=== PATIENT | female | born 1995 | race African-American/Black ===

== ENCOUNTER 2018-12-05 16:29 | Emergency (ER) | payer SELFPAY ==
[~2018-12-05] VITALS: Ht 160 cm; Wt 90.7 kg
[2018-12-05 18:31] LABS: BILIRUBIN,URINE NEGATIVE (NEG); CLARITY,URINE CLEAR; COLOR,URINE YELLOW; NITRITE,URINE NEGATIVE (NEG); PH,URINE 6.5; PROTEIN,URINE NEGATIVE (NEG-TRACE); UROBILINOGEN,URINE 0.2 mg/dL (0.2 mg/dL)
[2018-12-05 18:47] LABS: SQUAMOUS EPITHELIAL CELL,UR MOD /LPF
[2018-12-05 18:48] LABS: BACTERIA,URINE MODERATE /HPF (0-FEW)
[2018-12-05 18:49] LABS: RBC,URINE 0 /HPF (0-2)
[2018-12-05] MEDS ORDERED: ONDANSETRON PF 4 MG/2 ML VIAL. IV ONE (19:15)
[2018-12-05] MEDS ORDERED: KETOROLAC 15 MG/ML VIAL. IV ONE (19:15)
[2018-12-05] MEDS ORDERED: IV NORMAL SALINE 1000ML BAG 1,000 ML IV ONE (19:15)
[2018-12-05 19:25] LABS: BASO % 1 % (0-3); EOS # 0.2 x10^3/uL (0.0-0.7); EOS % 3 % (0-3); HEMATOCRIT 27.2 % (36.0-47.0); HEMOGLOBIN 8.7 g/dL (12.0-15.5); LYMPH # 1.8 x10^3/uL (1.0-4.8); LYMPH % 27 % (24-48); MEAN CORPUSCULAR HEMOGLOBIN 23 pg (25-35); MEAN CORPUSCULAR HGB CONC 32 g/dL (31-37); MEAN CORPUSCULAR VOLUME 72 fL (79-100); MONO # 0.3 x10^3/uL (0.0-1.1); MONO % 5 % (0-9); NEUT # 4.4 x10^3uL (1.8-7.7); NEUT % 65 % (31-73); PLATELET COUNT 185 x10^3/uL (140-400); RED BLOOD COUNT 3.79 x10^6/uL (3.50-5.40); RED CELL DISTRIBUTION WIDTH 19.1 % (11.5-14.5); WHITE BLOOD COUNT 6.7 x10^3/uL (4.0-11.0)
[2018-12-05 19:32] LABS: CALCIUM 8.4 mg/dL (8.5-10.1); CREATININE 0.9 mg/dL (0.6-1.0); GFR 92.3; POTASSIUM 3.6 mmol/L (3.5-5.1)
[2018-12-05 19:38] LABS: ALBUMIN 3.4 g/dL (3.4-5.0); ALBUMIN/GLOBULIN RATIO 0.8 (1.0-1.7); TOTAL BILIRUBIN 0.2 mg/dL (0.2-1.0); TOTAL PROTEIN 7.7 g/dL (6.4-8.2)
--- NOTE | 2018-12-05 20:04 | RAD ---
PQRS Compliance Statement: One or more of the following individualized dose reduction techniques were utilized for this examination: 1. Automated exposure control 2. Adjustment of the mA and/or kV according to patient size 3. Use of iterative reconstruction technique CT abdomen/pelvis without contrast 12/05/2018 7:15 PM INDICATION: Bilateral flank pain for 3 days COMPARISON: None available TECHNIQUE: Multiple axial CT images of the abdomen and pelvis were obtained without intravenous contrast. Coronal and sagittal reformats are provided. FINDINGS: Visualized portions of the lung bases are clear. Heart size is within normal limits. Evaluation of the solid abdominal viscera is limited by lack of intravenous contrast. No suspicious hepatic masses are identified. Spleen, bilateral adrenal glands, and pancreas are normal in appearance. Gallbladder is present without adjacent inflammatory changes. The abdominal aorta is normal in course and caliber. There are no pathologically enlarged lymph nodes in the abdomen and pelvis. There is no abdominal free fluid. There is no free intraperitoneal air. Small and large bowel are normal in caliber. There is no evidence for bowel obstruction. There are no pericolonic inflammatory changes. A normal, nondilated appendix is visualized without adjacent inflammatory changes. The kidneys are relatively symmetric in appearance. There is no suspicious renal mass within the limitations of a noncontrast examination. There is no hydronephrosis. There are no calculi within the kidneys, ureters or urinary bladder. The urinary bladder is within normal limits given degree of distention. Uterus and adnexa are within normal limits. No suspicious pelvic masses are identified. There are no suspicious osseous lesions identified. IMPRESSION: 1. No acute abnormality is identified within the abdomen and pelvis within the limitations of a noncontrast examination. No evidence for obstructive uropathy. Electronically signed by: Katherine Howard MD (12/05/2018 8:01 PM) [facility]
--- NOTE | 2018-12-05 20:08 | PHYS DOC ---
Past Medical History Past Medical History: Anemia, Hypothyroid Additional Past Medical Histor: thyroid cancer (FRANK ROBLES APRN) Past Surgical History: Other Additional Past Surgical Histo: THYROID REMOVED (FRANK ROBLES APRN) Alcohol Use: Occasionally Drug Use: None (FRANK ROBLES APRN) Adult General Chief Complaint Chief Complaint: ABDOMINAL PAIN HPI HPI Patient is a 23 year old AA female who presents to the emergency department with complaints of bilateral flank pain for the last three days. She denies any dysuria, hematuria, urgency, or increased frequency of urination. She denies any nausea, vomiting, diarrhea, or abdominal pain. Patient currently he rates her pain a 8/10 on the pain scale, there are no alleviating or exacerbating factors. She reports her last bowel movement was earlier today and was normal. (FRANK ROBLES APRN) Review of Systems Review of Systems Constitutional: Denies fever or chills [] Eyes: Denies change in visual acuity, redness, or eye pain [] HENT: Denies nasal congestion or sore throat [] Respiratory: Denies cough or shortness of breath [] Cardiovascular: No additional information not addressed in HPI [] GI: Denies abdominal pain, nausea, vomiting, or diarrhea [] : Denies dysuria or hematuria ; See HPI Musculoskeletal: Denies joint pain [] Integument: Denies rash or skin lesions [] Neurologic: Denies headache, focal weakness or sensory changes [] Complete systems were reviewed and found to be within normal limits, except as documented in this note. (FRANK ROBLES APRN) Current Medications Current Medications Current Medications Medications (Trade) Dose Ordered Sig/Padilla Start Time Stop Time Status Last Admin Dose Admin Ketorolac Tromethamine (Toradol 15mg Vial) 15 mg 1X ONCE 12/05/18 19:15 12/05/18 19:27 DC 12/05/18 19:37 15 MG Ondansetron HCl (Zofran) 4 mg 1X ONCE 12/05/18 19:15 12/05/18 19:27 DC 12/05/18 19:36 4 MG Sodium Chloride 1,000 ml @ 1,000 mls/hr 1X ONCE 12/05/18 19:15 12/05/18 20:14 DC 12/05/18 19:36 1,000 MLS/HR (BG JOY DO) Allergies Allergies Allergies Coded Allergies Type Severity Reaction Last Updated Verified No Known Drug Allergies 12/05/18 No (BG JOY DO) Physical Exam Physical Exam Constitutional: Well developed, well nourished, no acute distress, non-toxic appearance. [] HENT: Normocephalic, atraumatic, bilateral external ears normal, nose normal. [] Eyes: PERRLA, no discharge. [] Neck: Normal range of motion, no stridor. [] Cardiovascular:Heart rate regular rhythm Lungs & Thorax: respirations even and unlabored, no retractions, no distress Abdomen: Bowel sounds normal, soft, no tenderness, no masses, no pulsatile masses. [] Skin: Warm, dry, no erythema, no rash. [] Back: No bony tenderness, no CVA tenderness. [] Extremities: No cyanosis, ROM intact, no edema, no deformities. Neurologic: Alert and oriented X 3, no focal deficits noted. [] Psychologic: Affect normal, judgement normal, mood normal. [] (FRANK ROBLES APRN) Current Patient Data Lab Values Laboratory Tests Test 12/05/18 16:40 12/05/18 18:14 12/05/18 19:00 Urine Collection Type Unknown Urine Color Yellow Urine Clarity Clear Urine pH 6.5 Urine Specific [place] 1.025 Urine Protein Negative mg/dL (NEG-TRACE) Urine Glucose (UA) Negative mg/dL (NEG) Urine Ketones (Stick) Negative mg/dL (NEG) Urine Blood Large (NEG) Urine Nitrite Negative (NEG) Urine Bilirubin Negative (NEG) Urine Urobilinogen Dipstick 0.2 mg/dL (0.2 mg/dL) Urine Leukocyte Esterase Trace (NEG) Urine RBC 0 /HPF (0-2) Urine WBC 1-4 /HPF (0-4) Urine Squamous Epithelial Cells Mod /LPF Urine Bacteria Moderate /HPF (0-FEW) Urine Mucus Mod /LPF POC Urine HCG, Qualitative Hcg negative (Negative) White Blood Count 6.7 x10^3/uL (4.0-11.0) Red Blood Count 3.79 x10^6/uL (3.50-5.40) Hemoglobin 8.7 g/dL (12.0-15.5) L Hematocrit 27.2 % (36.0-47.0) L Mean Corpuscular Volume 72 fL (79-100) L Mean Corpuscular Hemoglobin 23 pg (25-35) L Mean Corpuscular Hemoglobin Concent 32 g/dL (31-37) Red Cell Distribution Width 19.1 % (11.5-14.5) H Platelet Count 185 x10^3/uL (140-400) Neutrophils (%) (Auto) 65 % (31-73) Lymphocytes (%) (Auto) 27 % (24-48) Monocytes (%) (Auto) 5 % (0-9) Eosinophils (%) (Auto) 3 % (0-3) Basophils (%) (Auto) 1 % (0-3) Neutrophils # (Auto) 4.4 x10^3uL (1.8-7.7) Lymphocytes # (Auto) 1.8 x10^3/uL (1.0-4.8) Monocytes # (Auto) 0.3 x10^3/uL (0.0-1.1) Eosinophils # (Auto) 0.2 x10^3/uL (0.0-0.7) Basophils # (Auto) 0.0 x10^3/uL (0.0-0.2) Platelet Estimate Adequate (ADEQUATE) Giant Platelets Occ Polychromasia Hypochromasia Mod Anisocytosis Slight Sodium Level 139 mmol/L (136-145) Potassium Level 3.6 mmol/L (3.5-5.1) Chloride Level 103 mmol/L (98-107) Carbon Dioxide Level 30 mmol/L (21-32) Anion Gap 6 (6-14) Blood Urea Nitrogen 14 mg/dL (7-20) Creatinine 0.9 mg/dL (0.6-1.0) Estimated GFR (Cockcroft-Gault) 92.3 BUN/Creatinine Ratio 16 (6-20) Glucose Level 95 mg/dL (70-99) Calcium Level 8.4 mg/dL (8.5-10.1) L Total Bilirubin 0.2 mg/dL (0.2-1.0) Aspartate Amino Transferase (AST) 14 U/L (15-37) L Alanine Aminotransferase (ALT) 13 U/L (14-59) L Alkaline Phosphatase 70 U/L (46-116) Total Protein 7.7 g/dL (6.4-8.2) Albumin 3.4 g/dL (3.4-5.0) Albumin/Globulin Ratio 0.8 (1.0-1.7) L Laboratory Tests 12/05/18 19:00 Laboratory Tests 12/05/18 19:00 Microbiology 12/05/18 Urine Culture - Final, Complete 12/05/18 Urine Culture Result 1 (DAYANNA) - Final, Complete (BG JOY DO) EKG EKG [] (FRANK ROBLES APRN) Radiology/Procedures Radiology/Procedures PROCEDURE: CT ABDOMEN PELVIS WO CONTRAST PQRS Compliance Statement: One or more of the following individualized dose reduction techniques were utilized for this examination: 1. Automated exposure control 2. Adjustment of the mA and/or kV according to patient size 3. Use of iterative reconstruction technique CT abdomen/pelvis without contrast 12/05/2018 7:15 PM INDICATION: Bilateral flank pain for 3 days COMPARISON: None available TECHNIQUE: Multiple axial CT images of the abdomen and pelvis were obtained without intravenous contrast. Coronal and sagittal reformats are provided. FINDINGS: Visualized portions of the lung bases are clear. Heart size is within normal limits. Evaluation of the solid abdominal viscera is limited by lack of intravenous contrast. No suspicious hepatic masses are identified. Spleen, bilateral adrenal glands, and pancreas are normal in appearance. Gallbladder is present without adjacent inflammatory changes. The abdominal aorta is normal in course and caliber. There are no pathologically enlarged lymph nodes in the abdomen and pelvis. There is no abdominal free fluid. There is no free intraperitoneal air. Small and large bowel are normal in caliber. There is no evidence for bowel obstruction. There are no pericolonic inflammatory changes. A normal, nondilated appendix is visualized without adjacent inflammatory changes. The kidneys are relatively symmetric in appearance. There is no suspicious renal mass within the limitations of a noncontrast examination. There is no hydronephrosis. There are no calculi within the kidneys, ureters or urinary bladder. The urinary bladder is within normal limits given degree of distention. Uterus and adnexa are within normal limits. No suspicious pelvic masses are identified. There are no suspicious osseous lesions identified. IMPRESSION: 1. No acute abnormality is identified within the abdomen and pelvis within the limitations of a noncontrast examination. No evidence for obstructive uropathy.[] (FRANK ROBLES APRN) Course & Med Decision Making Course & Med Decision Making Pertinent Labs and Imaging studies reviewed. (See chart for details) dx: back pain ddx: kidney stone, UTI patient given 4mg Zofran, 50 mg Toradol, and 1 L of NS in the ER, reported feeling better after medications. CT abdomen and pelvis negative for any acute findings. Urinalysis negative, CMP unremarkable, CBC positive for anemia patient reports history of. prescriptions written for Flexeril and naproxen, follow up with PCP if symptoms persist, return to ER precautions given. Pt verbalized an understanding of discharge, medications, follow-up, home care, and return to ED precautions, was in agreement with POC. (FRANK ROBLES APRN) Dragon Disclaimer Dragon Disclaimer This electronic medical record was generated, in whole or in part, using a voice recognition dictation system. (FRANK ROBLES APRN) Departure Departure Impression: Primary Impression: Low back pain with left-sided sciatica Additional Impression: Anemia Disposition: HOME, SELF-CARE Condition: STABLE Referrals: NO PCP (PCP) Patient Instructions: Back Pain, Adult, [id number] Additional Instructions: Fill the prescriptions and use as directed. Activity as tolerated. Follow up with your primary care doctor if symptoms persist, return to the ER if symptoms worsen. Scripts Naproxen (NAPROXEN) 500 Mg Tablet 1 TAB PO BID PRN for PAIN for 10 Days, #20 TAB 0 Refills Prov: FRANK ROBLES APRN 12/05/18 Cyclobenzaprine Hcl (CYCLOBENZAPRINE HCL) 10 Mg Tablet 1 TAB PO TID PRN for PAIN for 10 Days, #30 TAB 0 Refills Prov: FRANK ROBLES APRN 12/05/18 Attending Signature Attending Signature I have reviewed the PA/CREEL OPERATOR's note and plan of care. I was available for consultation as needed during the patient's visit in the emergency department. I agree with the clinical impression, plan, and disposition. (BG JOY DO) Problem Qualifiers Primary Impression: Low back pain with left-sided sciatica Chronicity: acute Back pain laterality: bilateral Qualified Codes: M54 .42 - Lumbago with sciatica, left side Additional Impression: Anemia Anemia type: unspecified type Qualified Codes: D64.9 - Anemia, unspecified FRANK ROBLES APRN Dec 05, 2018 20:08 BG JOY DO March 02, 2019 05:25
[2018-12-05 20:10] VITALS: BP 93/56
[2018-12-05 20:18] LABS: PLT ESTIMATE ADEQUATE (ADEQUATE)
[2018-12-05 20:19] LABS: ANISOCYTOSIS SLIGHT; HYPOCHROMIA MOD
[2018-12-05] MEDS ORDERED: NAPR-514 PO (20:55)
[2018-12-05] MEDS ORDERED: CYCL10TA2 PO (20:55)
== END 2018-12-05 21:10 | disposition home or self-care (01) ==
LOC: ER 16:29
DX: D64.9 Anemia, unspecified (principal); M54.42 Lumbago with sciatica, left side; R10.9 Unspecified abdominal pain; E03.9 Hypothyroidism, unspecified
CPT/HCPCS: 36415; 74176; 80053; 81001; 81025; 85025; 87086; 96374; 96375; 99284; J1885; J2405; J7030

== ENCOUNTER 2019-03-29 20:29 | Emergency (ER) | payer SELFPAY ==
[~2019-03-29] VITALS: Ht 160 cm; Wt 90.7 kg
[~2019-03-29 20:29] MED LIST: CYCL10TA2 PO; NAPR-514 PO
[2019-03-29 22:00] VITALS: BP 112/79
[2019-03-29] MEDS ORDERED: METOCLOPRAMIDE HCL 10 MG/2 ML VIAL. IV ONE (22:00)
[2019-03-29] MEDS ORDERED: FAMOTIDINE 20 MG/2 ML VIAL IVP ONE (22:00)
[2019-03-29] MEDS ORDERED: IV NORMAL SALINE 1000ML BAG 1,000 ML IV ONE (22:00)
[2019-03-29] MEDS ORDERED: KETOROLAC 30 MG/ML VIAL. IV ONE (22:00)
[2019-03-29 22:02] LABS: BILIRUBIN,URINE NEGATIVE (NEG); CLARITY,URINE CLEAR; COLOR,URINE YELLOW; NITRITE,URINE NEGATIVE (NEG); PROTEIN,URINE NEGATIVE (NEG-TRACE); UROBILINOGEN,URINE 0.2 mg/dL (0.2 mg/dL)
[2019-03-29 22:04] LABS: BASO % 0 % (0-3); EOS # 0.2 x10^3/uL (0.0-0.7); EOS % 3 % (0-3); HEMATOCRIT 28.5 % (36.0-47.0); LYMPH # 2.6 x10^3/uL (1.0-4.8); LYMPH % 35 % (24-48); MEAN CORPUSCULAR HEMOGLOBIN 22 pg (25-35); MEAN CORPUSCULAR HGB CONC 32 g/dL (31-37); MEAN CORPUSCULAR VOLUME 68 fL (79-100); MONO # 0.3 x10^3/uL (0.0-1.1); MONO % 4 % (0-9); NEUT # 4.4 x10^3uL (1.8-7.7); NEUT % 58 % (31-73); PLATELET COUNT 274 x10^3/uL (140-400); RED BLOOD COUNT 4.18 x10^6/uL (3.50-5.40); RED CELL DISTRIBUTION WIDTH 19.6 % (11.5-14.5); WHITE BLOOD COUNT 7.6 x10^3/uL (4.0-11.0)
[2019-03-29 22:20] LABS: CALCIUM 9.4 mg/dL (8.5-10.1); GFR 81.7
[2019-03-29 22:20] LABS: BACTERIA,URINE FEW /HPF (0-FEW); RBC,URINE 0 /HPF (0-2); SQUAMOUS EPITHELIAL CELL,UR MOD /LPF; WBC,URINE RARE /HPF (0-4)
[2019-03-29 22:27] LABS: ALBUMIN 3.9 g/dL (3.4-5.0); ALBUMIN/GLOBULIN RATIO 0.8 (1.0-1.7); TOTAL BILIRUBIN 0.1 mg/dL (0.2-1.0); TOTAL PROTEIN 8.5 g/dL (6.4-8.2)
[2019-03-29 23:01] LABS: MICROCYTOSIS MOD; PLT ESTIMATE ADEQUATE (ADEQUATE)
[2019-03-29] MEDS ORDERED: ORPH100T PO (23:03)
--- NOTE | 2019-03-29 23:03 | PHYS DOC ---
Past Medical History Past Medical History: Anemia, Hypothyroid Additional Past Medical Histor: thyroid cancer Past Surgical History: Other Additional Past Surgical Histo: THYROID REMOVED Alcohol Use: Occasionally Drug Use: None Adult General Chief Complaint Chief Complaint: GI PROBLEM HPI HPI Patient is a 23 year old [f__sex] who presents with [] Review of Systems Review of Systems Constitutional: Denies fever or chills [] Eyes: Denies change in visual acuity, redness, or eye pain [] HENT: Denies nasal congestion or sore throat [] Respiratory: Denies cough or shortness of breath [] Cardiovascular: No additional information not addressed in HPI [] GI: Denies abdominal pain, nausea, vomiting, bloody stools or diarrhea [] : Denies dysuria or hematuria [] Musculoskeletal: Denies back pain or joint pain [] Integument: Denies rash or skin lesions [] Neurologic: Denies headache, focal weakness or sensory changes [] Endocrine: Denies polyuria or polydipsia [] All other systems were reviewed and found to be within normal limits, except as documented in this note. Current Medications Current Medications Current Medications Medications (Trade) Dose Ordered Sig/Padilla Start Time Stop Time Status Last Admin Dose Admin Famotidine (Pepcid Vial) 20 mg 1X ONCE 03/29/19 22:00 03/29/19 22:01 DC 03/29/19 22:01 20 MG Ketorolac Tromethamine (Toradol 30mg Vial) 15 mg 1X ONCE 03/29/19 22:00 03/29/19 22:01 DC 03/29/19 22:01 15 MG Metoclopramide HCl (Reglan Vial) 10 mg 1X ONCE 03/29/19 22:00 03/29/19 22:01 DC 03/29/19 22:02 10 MG Sodium Chloride 1,000 ml @ 1,000 mls/hr 1X ONCE 03/29/19 22:00 03/29/19 22:59 DC 03/29/19 22:02 1,000 MLS/HR Allergies Allergies Allergies Coded Allergies Type Severity Reaction Last Updated Verified No Known Drug Allergies 12/05/18 No Physical Exam Physical Exam Constitutional: Well developed, well nourished, no acute distress, non-toxic appearance. [] HENT: Normocephalic, atraumatic, bilateral external ears normal, oropharynx moist, no oral exudates, nose normal. [] Eyes: PERRLA, EOMI, conjunctiva normal, no discharge. [] Neck: Normal range of motion, no tenderness, supple, no stridor. [] Cardiovascular:Heart rate regular rhythm, no murmur [] Lungs & Thorax: Bilateral breath sounds clear to auscultation [] Abdomen: Bowel sounds normal, soft, no tenderness, no masses, no pulsatile masses. [] Skin: Warm, dry, no erythema, no rash. [] Back: No tenderness, no CVA tenderness. [] Extremities: No tenderness, no cyanosis, no clubbing, ROM intact, no edema. [] Neurologic: Alert and oriented X 3, normal motor function, normal sensory function, no focal deficits noted. [] Psychologic: Affect normal, judgement normal, mood normal. [] Current Patient Data Vital Signs Vital Signs Date Time Temp Pulse Resp B/P (MAP) Pulse Ox O2 Delivery O2 Flow Rate FiO2 03/29/19 22:00 69 16 112/79 (90) 96 Room Air 03/29/19 21:00 98.3 98.3 Lab Values Laboratory Tests Test 03/29/19 20:30 03/29/19 20:51 03/29/19 21:05 Urine Collection Type Void Urine Color Yellow Urine Clarity Clear Urine pH 6.0 Urine Specific [place] 1.025 Urine Protein Negative mg/dL (NEG-TRACE) Urine Glucose (UA) Negative mg/dL (NEG) Urine Ketones (Stick) Negative mg/dL (NEG) Urine Blood Negative (NEG) Urine Nitrite Negative (NEG) Urine Bilirubin Negative (NEG) Urine Urobilinogen Dipstick 0.2 mg/dL (0.2 mg/dL) Urine Leukocyte Esterase Negative (NEG) Urine RBC 0 /HPF (0-2) Urine WBC Rare /HPF (0-4) Urine Squamous Epithelial Cells Mod /LPF Urine Bacteria Few /HPF (0-FEW) Urine Mucus Mod /LPF Magnesium Level 1.9 mg/dL (1.8-2.4) POC Urine HCG, Qualitative Hcg negative (Negative) White Blood Count 7.6 x10^3/uL (4.0-11.0) Red Blood Count 4.18 x10^6/uL (3.50-5.40) Hemoglobin 9.0 g/dL (12.0-15.5) L Hematocrit 28.5 % (36.0-47.0) L Mean Corpuscular Volume 68 fL (79-100) L Mean Corpuscular Hemoglobin 22 pg (25-35) L Mean Corpuscular Hemoglobin Concent 32 g/dL (31-37) Red Cell Distribution Width 19.6 % (11.5-14.5) H Platelet Count 274 x10^3/uL (140-400) Neutrophils (%) (Auto) 58 % (31-73) Lymphocytes (%) (Auto) 35 % (24-48) Monocytes (%) (Auto) 4 % (0-9) Eosinophils (%) (Auto) 3 % (0-3) Basophils (%) (Auto) 0 % (0-3) Neutrophils # (Auto) 4.4 x10^3uL (1.8-7.7) Lymphocytes # (Auto) 2.6 x10^3/uL (1.0-4.8) Monocytes # (Auto) 0.3 x10^3/uL (0.0-1.1) Eosinophils # (Auto) 0.2 x10^3/uL (0.0-0.7) Basophils # (Auto) 0.0 x10^3/uL (0.0-0.2) Platelet Estimate Pending Sodium Level 139 mmol/L (136-145) Potassium Level 4.0 mmol/L (3.5-5.1) Chloride Level 103 mmol/L (98-107) Carbon Dioxide Level 26 mmol/L (21-32) Anion Gap 10 (6-14) Blood Urea Nitrogen 13 mg/dL (7-20) Creatinine 1.0 mg/dL (0.6-1.0) Estimated GFR (Cockcroft-Gault) 81.7 BUN/Creatinine Ratio 13 (6-20) Glucose Level 82 mg/dL (70-99) Calcium Level 9.4 mg/dL (8.5-10.1) Total Bilirubin 0.1 mg/dL (0.2-1.0) L Aspartate Amino Transferase (AST) 17 U/L (15-37) Alanine Aminotransferase (ALT) 15 U/L (14-59) Alkaline Phosphatase 71 U/L (46-116) Total Protein 8.5 g/dL (6.4-8.2) H Albumin 3.9 g/dL (3.4-5.0) Albumin/Globulin Ratio 0.8 (1.0-1.7) L Lipase 212 U/L (73-393) Laboratory Tests 03/29/19 21:05 Laboratory Tests 03/29/19 21:05 EKG EKG [] Radiology/Procedures Radiology/Procedures [] Course & Med Decision Making Course & Med Decision Making Pertinent Labs and Imaging studies reviewed. (See chart for details) [] Dragon Disclaimer Dragon Disclaimer This electronic medical record was generated, in whole or in part, using a voice recognition dictation system. Departure Departure Impression: Primary Impression: Flank pain Disposition: HOME, SELF-CARE Condition: STABLE Referrals: NO PCP (PCP) Patient Instructions: Flank Pain, [id number] Additional Instructions: ICE area 20 min on then off next 20 min as needed for next few days. May also use heating pad instead of ICE. Take over the counter Tylenol and Ibuprofen for pain or discomfort in addition to muscle relaxer prescribed. Scripts Orphenadrine Citrate (ORPHENADRINE CITRATE) 100 Mg Tablet.er 100 MG PO BID PRN for MUSCLE PAIN, #14 Prov: BG JOY DO 03/29/19 BG JOY DO Mar 29, 2019 23:03
[2019-03-29] MEDS ORDERED: ORPHENADRINE CITRATE 60 MG/2 ML VIAL. IV ONE (23:15)
== END 2019-03-29 23:15 | disposition home or self-care (01) ==
LOC: ER 20:29
DX: R10.12 Left upper quadrant pain (principal); R07.81 Pleurodynia; E89.0 Postprocedural hypothyroidism
CPT/HCPCS: 36415; 80053; 81001; 81025; 83690; 83735; 85025; 96374; 96375; 99284; J1885; J2360; J2765; J3490; J7030